=== PATIENT | female | born 1955 | race Caucasian/White ===

== ENCOUNTER 2017-08-01 10:51 | Outpatient (CLI) ==
--- NOTE | 2017-08-01 12:24 | US ---
EXAM: Ultrasound bilateral carotid duplex. HISTORY: Left carotid bruit. COMPARISON: None available. TECHNIQUE: Multiple villegas scale and color Doppler images were obtained. FINDINGS: Please note that estimates of internal carotid artery stenoses are based upon NASCET cr[facility] [place]. Right carotid: Suspect intimal hyperplasia. No significant calcified plaquing identified. Peak sys tolic velocity measurement in the right internal carotid artery is 1.3 meters per second. Right inte rnal to common carotid artery peak systolic velocity ratio measures 1.3. End diastolic velocity daniel urement in the right internal carotid artery is 0.5 meters per second. Flow in the right vertebral a rtery is antegrade. Left carotid: Suspect intimal hyperplasia. No significant calcified plaquing identified. Peak syst olic velocity measurement in the left internal carotid artery is 0.9 meters per second. Left interna l to common carotid artery peak systolic velocity ratio measures 1.2. End diastolic velocity measure ment in the left internal carotid artery measures 1.4 meters per second. Flow in the left vertebral artery is antegrade. IMPRESSION: 1. No evidence for 50% or greater stenosis in the right or left internal carotid artery. 2. Antegrade flow in both vertebral arteries.
== END 2017-08-01 10:52 | disposition home or self-care (01) ==
LOC: RAD 10:51
PROVIDERS: ATTEND Emergency Medicine
DX: R09.89 Other specified symptoms and signs involving the circulatory and respiratory systems (principal)